=== PATIENT | female | born 1985 | race Caucasian/White ===

== ENCOUNTER 2019-04-02 12:26 | Inpatient (IN) | payer MEDICAID ==
[~2019-04-02] VITALS: Ht 167.6 cm; Wt 95.3 kg
[2019-04-02 17:29] VITALS: BP 139/87; BMI 33.9
[2019-04-02 18:18] LABS: % SATURATION 15 % (15-55); IRON 30 ug/dl (35-150); TOTAL IRON BIND CAPACITY 191 ug/dl (260-445); UNSAT IRON BIND CAPACITY 161 ug/dl (150-375)
[2019-04-02 18:29] VITALS: BP 139/87
--- NOTE | 2019-04-02 19:15 | NUR ---
RECEIVED CARE FROM DAY SHIFT. LYING IN BED ON SIDE. EYES CLOSED, RESP EVEN AND UNLABORED. CALL LIGHT AT SIDE. IV SL TO RIGHT AC.
[2019-04-02 20:00] VITALS: BP 128/83
[2019-04-03] VITALS: BP 128/81
--- NOTE | 2019-04-03 03:49 | NUR ---
I have reviewed this patient and I concur with the Shift Assessment completed by the Licensed Practical Nurse today this shift.
[2019-04-03 05:45] VITALS: BP 125/90
[2019-04-03 06:03] LABS: BASOPHILS 0.1 % (0-2); EOSINOPHILS 1.5 % (0-7); HEMATOCRIT 25.9 % (36.0-48.0); HEMOGLOBIN 9.2 g/dL (12-16); IMMATURE GRANULOCYTES 0.5 % (0-5); LYMPHOCYTES 5.8 % (15-50); MCH 28.9 pg (26.0-34.0); MCHC 35.5 g/dL (31.0-37.0); MCV 81.4 fL (80.0-100.0); MEAN PLATELET VOLUME 11.1 fL (7.4-10.4); MONOCYTES 6.2 % (2-11); NEUTROPHILS 85.9 % (40-80); PLATELET COUNT 330 10x3/uL (130-400); RBC 3.18 10x6/uL (4.00-5.40); RDW 13.3 % (11.5-14.5)
[2019-04-03 06:25] LABS: ALBUMIN 2.1 g/dL (3.4-5.0); ANION GAP 10.9 mmol/L (8-16); BILIRUBIN - TOTAL 1.81 mg/dL (0.2-1.3); CALCIUM 8.4 mg/dL (8.5-10.1); CARBON DIOXIDE 28.2 mmol/L (21.0-32.0); CREATININE - SERUM 1.1 mg/dL (0.6-1.3); POTASSIUM - SERUM 3.1 mmol/L (3.5-5.1); PROTEIN - SERUM 6.9 g/dL (6.4-8.2)
--- NOTE | 2019-04-03 08:00 | NUR ---
ASSESSMENT PER FLOW SHEET. PT IS WITHOUT DISTRESS.CALL LIGHT IN REACH
[2019-04-03 08:44] VITALS: BP 137/87
[2019-04-03 12:59] VITALS: BP 134/90
[2019-04-03 16:25] LABS: APPEARANCE SL CLDY (CLEAR); BILIRUBIN NEGATIVE (NEGATIVE); COLOR YELLOW (YELLOW); GLUCOSE NEGATIVE (NEGATIVE); KETONE NEGATIVE (NEGATIVE); NITRITE NEGATIVE (NEGATIVE); PROTEIN 1+ mg/dL (NEGATIVE); UROBILINOGEN NORMAL (NORMAL)
[2019-04-03 16:27] LABS: BACTERIA FEW /hpf (NONE SEEN); EPITHELIAL CELLS 0-5 /hpf (0-5); RED CELLS - URINE >50 /hpf (0-5); WHITE CELLS - URINE 0-5 /hpf (0-5)
[2019-04-03 18:03] VITALS: BP 127/83
--- NOTE | 2019-04-03 18:12 | NUR ---
PT IS RESTING AND IS WITHOUT DISTRESS AT PRESENT. PT IS WITHOUT CHANGE FROM INITIAL SHIFT ASSESSMENT.CONT PLAN OF CARE
--- NOTE | 2019-04-03 19:15 | NUR ---
RECEIVED CARE FROM DAY NURSE. LYING IN BED ON SIDE TALKING ON PHONE. REPORTS NO NEEDS AT THIS TIME. CALL LIGHT AT SIDE. IV SL TO PATENT RIGHT AC.
[2019-04-03 20:00] VITALS: BP 127/82
--- NOTE | 2019-04-04 03:37 | NUR ---
I have reviewed this patient and I concur with the Shift Assessment completed by the Licensed Practical Nurse today this shift.
[2019-04-04 04:00] VITALS: BP 118/79
[2019-04-04 04:35] LABS: BASOPHILS 0.1 % (0-2); EOSINOPHILS 1.8 % (0-7); HEMATOCRIT 25.8 % (36.0-48.0); HEMOGLOBIN 9.1 g/dL (12-16); IMMATURE GRANULOCYTES 0.5 % (0-5); MCH 28.7 pg (26.0-34.0); MCHC 35.3 g/dL (31.0-37.0); MCV 81.4 fL (80.0-100.0); MONOCYTES 7.6 % (2-11); PLATELET COUNT 382 10x3/uL (130-400); RBC 3.17 10x6/uL (4.00-5.40); RDW 13.6 % (11.5-14.5); WBC 15.1 10x3/uL (4.8-10.8)
[2019-04-04 04:55] LABS: ALBUMIN 2.3 g/dL (3.4-5.0); ANION GAP 11.3 mmol/L (8-16); BILIRUBIN - TOTAL 1.45 mg/dL (0.2-1.3); CALCIUM 8.4 mg/dL (8.5-10.1); CARBON DIOXIDE 27.2 mmol/L (21.0-32.0); POTASSIUM - SERUM 3.5 mmol/L (3.5-5.1); PROTEIN - SERUM 7.3 g/dL (6.4-8.2)
[2019-04-04 08:53] VITALS: BP 139/97
[2019-04-04 13:56] VITALS: BP 129/82
--- NOTE | 2019-04-04 19:14 | NUR ---
PT IS WITHOUT DISTRESS,WITHOUT CHANGE.CONT PLAN OF CARE
[2019-04-04 20:19] VITALS: BP 124/72
--- NOTE | 2019-04-04 22:00 | NUR ---
ASSESSMENT PER FLOWSHEET. IV LEAKING ON RT AC. REMOVED WITH TIP INTACT RESITED TO LT AC #20G X1 ATTEMPT RESUMED IV FLUIDS.
[2019-04-05 04:31] VITALS: BP 133/79
[2019-04-05 06:26] LABS: BASOPHILS 0.1 % (0-2); EOSINOPHILS 1.4 % (0-7); HEMATOCRIT 23.5 % (36.0-48.0); HEMOGLOBIN 8.2 g/dL (12-16); IMMATURE GRANULOCYTES 0.7 % (0-5); LYMPHOCYTES 9.7 % (15-50); MCH 28.3 pg (26.0-34.0); MCHC 34.9 g/dL (31.0-37.0); MONOCYTES 6.9 % (2-11); NEUTROPHILS 81.2 % (40-80); PLATELET COUNT 370 10x3/uL (130-400); RDW 13.9 % (11.5-14.5); WBC 16.2 10x3/uL (4.8-10.8)
[2019-04-05 06:50] LABS: ALKALINE PHOSPHATASE 168 U/L (46-116); BILIRUBIN - TOTAL 1.22 mg/dL (0.2-1.3); CALC OSMOLALITY 268 mosm/kg (275-300); CALCIUM 8.2 mg/dL (8.5-10.1); CARBON DIOXIDE 24.4 mmol/L (21.0-32.0); CHLORIDE - SERUM 103 mmol/L (98-107); CREATININE - SERUM 0.9 mg/dL (0.6-1.3); GLUCOSE 110 mg/dL (74-106); PROTEIN - SERUM 6.8 g/dL (6.4-8.2); SODIUM 135 mmol/L (136-145); UREA NITROGEN 8 mg/dL (7-18); eGFR NON AFRICAN AMERICAN 77 mL/min (90-120)
[2019-04-05 06:52] LABS: ALT (SGPT) 87 U/L (10-68); POTASSIUM - SERUM 4.2 mmol/L (3.5-5.1)
[2019-04-05 08:46] VITALS: BP 142/87
--- NOTE | 2019-04-05 09:09 | NUR ---
REFUSED LOVENOX AT THIS TIME. C/L IN REACH AT BEDSIDE.
--- NOTE | 2019-04-05 12:34 | MORECARE ---
CASE MANAGEMENT DISCHARGE SUMMARY PATIENT: LEAH OTTO UNIT: [id number] ADM DATE: 04/02/19 AGE: 33 : 87 SEX: F ROOM/BED: D.2222 AUTHOR: KARIS,DOC PHYSICIAN: REFERRING PHYSICIAN: RUBIO LINDSEY MD DATE OF SERVICE: 04/05/19 Discharge Plan Patient Name: LEAH OTTO Facility: [facility]:[place] : 1985 Planned Disposition: Home Anticipated Discharge Date: Discharge Date: Expected LOS: Initial Reviewer: [email or web address] Initial Review Date: 04/05/2019 Generated: 04/05/19 1:33 pm Comments DCP- Discharge Planning Updated by [email or web address]: Sandy Coker on 04/05/19 11:[address] Patient Name: LEAH OTTO Admission Status: Elective Accout number: [id number] Admission Date: 04-02-2019 : 1985 Admission Diagnosis:SEPSIS, UNSPECIFIED ORGANISM Attending: RUBIO LINDSEY Current LOS: 3 Anticipated DC Date: Planned Disposition: Home Primary Insurance: MEDICAID [place] Discharge Planning Comments: CM met with patient to complete initial dc planning assessment. CM educated patient on the CM role and verbal consent given by patient to complete assessment. CM verified patient's address, phone number, and emergency contact phone numbers. Patient lives at home with family and reports She is independent in hER care. At discharge patient plans to return home and feels this is a safe discharge. CM discussed availability of home health, rehab services, and medical equipment. Patient denied known discharge needs at this time.. . CM will continue to follow and will assist as needed with dc plans/needs. Inspector Soldering: Sandy Coker DCPIA - Discharge Planning Initial Assessment Updated by [email or web address]: Sandy Cokre on 04/05/19 12:31 pm * Is the patient Alert and Oriented? Yes * How many steps to enter\exit or inside your home? * PCP JOSH * Pharmacy [facility] * Preadmission Environment Home with Family * ADLs Independent * Verbal permission to speak to the caregivers and representatives has been obtained from the patient. N/A * Additional services required to return to the preadmission environment? No * Can the patient safely return to the preadmission environment? Yes * Has this patient been hospitalized within the prior 30 days at any hospital? No Patient Name: LEAH OTTO Page [id number] at 1234 All edits/amendments must be made on the electronic document DICTATION DATE: 04/05/19 1233 POLYSILICON PREPARATION WORKER: BRAEDEN 04/05/19 1233 RPT#: [id number] DC DATE: STATUS: ADM IN [facility] [address] [place] [address] END OF REPORT
[2019-04-05 13:23] VITALS: BP 126/83
[2019-04-05 13:41] VITALS: BMI 33.9
[2019-04-05 16:55] VITALS: BP 127/85
--- NOTE | 2019-04-05 20:00 | NUR ---
ASSESSMENT PER FLOWSHEET. IV PATENT LEFT AC OF NS AT 125CC'S/HR. SITE CLEAR. FAMILY MEMBERS AT BEDSIDE. SR UP X2 CALL LIGHT WITHIN REACH.
[2019-04-05 20:19] VITALS: BP 125/81
--- NOTE | 2019-04-05 21:00 | NUR ---
MEDS GIVEN PER MAR. INSTRUCTED PATIENT WILL NEED UA SPECIMEN NEXT VOID.
--- NOTE | 2019-04-05 22:00 | NUR ---
MEDS PER MAR.
[2019-04-05 23:42] LABS: HCG URINE NEGATIVE (NEGATIVE)
--- NOTE | 2019-04-06 | NUR ---
VIDED UA SPECIMEN OBTAINED AND SENT TO THE LAB
[2019-04-06 00:58] VITALS: BP 124/78
--- NOTE | 2019-04-06 03:51 | NUR ---
EYES CLOSED RESPIRATIONS WITH EASE AND UNLABORED.
[2019-04-06 04:54] VITALS: BP 118/76
[2019-04-06 06:30] LABS: BASOPHILS 0.1 % (0-2); EOSINOPHILS 1.5 % (0-7); HEMATOCRIT 23.4 % (36.0-48.0); HEMOGLOBIN 8.2 g/dL (12-16); IMMATURE GRANULOCYTES 0.6 % (0-5); LYMPHOCYTES 7.5 % (15-50); MCH 28.6 pg (26.0-34.0); MCV 81.5 fL (80.0-100.0); MEAN PLATELET VOLUME 10.5 fL (7.4-10.4); MONOCYTES 7.7 % (2-11); NEUTROPHILS 82.6 % (40-80); PLATELET COUNT 383 10x3/uL (130-400); RBC 2.87 10x6/uL (4.00-5.40); RDW 14.1 % (11.5-14.5); WBC 15.4 10x3/uL (4.8-10.8)
[2019-04-06 06:57] LABS: ALBUMIN 2.1 g/dL (3.4-5.0); ALKALINE PHOSPHATASE 186 U/L (46-116); ALT (SGPT) 123 U/L (10-68); CALC OSMOLALITY 273 mosm/kg (275-300); CALCIUM 8.5 mg/dL (8.5-10.1); CARBON DIOXIDE 23.1 mmol/L (21.0-32.0); CHLORIDE - SERUM 104 mmol/L (98-107); CREATININE - SERUM 0.9 mg/dL (0.6-1.3); GLUCOSE 108 mg/dL (74-106); POTASSIUM - SERUM 4.5 mmol/L (3.5-5.1); SODIUM 137 mmol/L (136-145); UREA NITROGEN 9 mg/dL (7-18); eGFR NON AFRICAN AMERICAN 77 mL/min (90-120)
[2019-04-06 12:49] VITALS: BP 124/74
[2019-04-06 13:02] VITALS: Ht 167.6 cm; Wt 95.3 kg
[2019-04-06 13:09] LABS: CRYPTOCOCCUS AG - SERUM Negative (Negative)
[2019-04-06 13:09] LABS: EHRLICHIA CHAFF IGG Negative (Neg:<1:64); EHRLICHIA CHAFF IGM Negative (Neg:<1:20); HGE IGG TITER Negative (Neg:<1:64); HGE IGM TITER Negative (Neg:<1:20)
--- NOTE | 2019-04-06 15:08 | NUR ---
NUTRITION F/U REG DIET. PT DID TOLERATE 50% INTAKE RECENT MEALS. WILL CONTINUE TO HONOR FOOD PREFERENCES, MONITOR PO INTAKE. RD FOLLOWING
[2019-04-06 15:58] VITALS: BP 135/87
--- NOTE | 2019-04-06 20:00 | NUR ---
ASSESSMENT PER FLOWSHEET. IV PATENT LEFT AC OF NS AT 50CC'S/HR SR UP X2 CALL LIGHT WITHIN YUDI.
[2019-04-06 20:49] VITALS: BP 130/81
--- NOTE | 2019-04-06 21:00 | NUR ---
MEDS GIVEN PER MAR.
--- NOTE | 2019-04-07 | NUR ---
EYES CLOSED RESPIRATIONS WITH EASE AND UNLABORED. DENIES NEEDS.
[2019-04-07 00:39] VITALS: BP 121/82
[2019-04-07 03:07] LABS: RMSF IGM 0.41 index (0.00-0.89)
[2019-04-07 04:54] VITALS: BP 143/96
[2019-04-07 07:23] LABS: BASOPHILS 0.1 % (0-2); EOSINOPHILS 1.6 % (0-7); IMMATURE GRANULOCYTES 0.4 % (0-5); LYMPHOCYTES 9.3 % (15-50); MCH 28.5 pg (26.0-34.0); MCHC 34.6 g/dL (31.0-37.0); MCV 82.3 fL (80.0-100.0); MONOCYTES 5.7 % (2-11); NEUTROPHILS 82.9 % (40-80); RBC 3.16 10x6/uL (4.00-5.40); RDW 14.1 % (11.5-14.5); WBC 13.5 10x3/uL (4.8-10.8)
[2019-04-07 07:39] LABS: PLATELET COUNT 461 10x3/uL (130-400)
[2019-04-07 07:49] LABS: ALBUMIN 2.4 g/dL (3.4-5.0); ANION GAP 13.3 mmol/L (8-16); BILIRUBIN - TOTAL 0.83 mg/dL (0.2-1.3); CALCIUM 8.8 mg/dL (8.5-10.1); CREATININE - SERUM 1.1 mg/dL (0.6-1.3); POTASSIUM - SERUM 4.3 mmol/L (3.5-5.1); PROTEIN - SERUM 7.8 g/dL (6.4-8.2)
[2019-04-07 08:22] VITALS: BP 119/84
[2019-04-07 10:11] LABS: F. TULARENSIS - IGG Negative (Negative); F. TULARENSIS - IGM Negative (Negative)
--- NOTE | 2019-04-07 11:34 | NUR ---
PT REFUSED DOXYCYLINE IV STATTING " THIS MEDS BURN AND HAD ME UP ALL NIGHT AND I AM NOT TAKING IT." CALL WAS PLACE TO DR. LINDSEY TO SEE IF HE WANTS TO CHANGE TO PO INSTEAD.
--- NOTE | 2019-04-07 11:50 | NUR ---
REC'D NEW ORDERS FOR DOXYCYCLINE 100 PO EVERY 12 HOURS AT THIS TIME. PT MADE AWARE OF NEW ORDERS. C/L IN REACH AT BEDSIDE.
[2019-04-07 13:15] VITALS: BP 157/89
--- NOTE | 2019-04-07 13:27 | NUR ---
I have reviewed this patient and I concur with the Shift Assessment completed by the Licensed Practical Nurse today this shift.
[2019-04-07 16:54] VITALS: BP 119/77
--- NOTE | 2019-04-07 19:00 | NUR ---
REPORT RECEIVED AND CARE OF PT ASSUMED. PT LYING IN LOW REYNOLDS'S POSITION WITH EYES CLOSED AND EASY RESPIRATIONS. NO IV AT THIS TIME. WILL MONITOR FOR NEEDS.
--- NOTE | 2019-04-07 21:12 | NUR ---
HS MEDICATIONS GIVEN. UNABLE TO GIVE IV MEDS PT WITHOUT IV AND REFUSES TO HAVE RE-SITED.
[2019-04-07 21:48] VITALS: BP 110/71
--- NOTE | 2019-04-07 22:30 | NUR ---
PT VISITING WITH FAMILY MEMBERS AT THIS TIME.
[2019-04-08] VITALS: BP 115/68
[2019-04-08 04:58] LABS: BASOPHILS 0.2 % (0-2); EOSINOPHILS 1.6 % (0-7); HEMOGLOBIN 9.1 g/dL (12-16); IMMATURE GRANULOCYTES 0.7 % (0-5); LYMPHOCYTES 12.8 % (15-50); MCH 28.9 pg (26.0-34.0); MCV 82.5 fL (80.0-100.0); MEAN PLATELET VOLUME 10.6 fL (7.4-10.4); MONOCYTES 5.6 % (2-11); NEUTROPHILS 79.1 % (40-80); PLATELET COUNT 548 10x3/uL (130-400); RBC 3.15 10x6/uL (4.00-5.40); RDW 14.4 % (11.5-14.5); WBC 13.1 10x3/uL (4.8-10.8)
[2019-04-08 05:26] LABS: ALBUMIN 2.5 g/dL (3.4-5.0); ANION GAP 15.8 mmol/L (8-16); BILIRUBIN - TOTAL 0.77 mg/dL (0.2-1.3); CALCIUM 9.1 mg/dL (8.5-10.1); CARBON DIOXIDE 23.3 mmol/L (21.0-32.0); PROTEIN - SERUM 7.9 g/dL (6.4-8.2)
[2019-04-08 05:28] LABS: POTASSIUM - SERUM 5.1 mmol/L (3.5-5.1)
[2019-04-08] MEDS ORDERED: ONDANSETRON ODT8 MG PO (06:01)
[2019-04-08 08:25] VITALS: BP 123/77
--- NOTE | 2019-04-08 10:00 | NUR ---
SPOKE WITH PATIENT ABOUT RESTARTING IV. TRIED TO EXPLAIN SHE IS GETTING IV ANTIBIOTICS AND IV IS NEEDED AT THIS TIME. PATIENT STATED SHE STILL REFUSES IV. FAMILY AT BEDSIDE. CALL LIGHT WITHIN REACH.
[2019-04-08 11:59] VITALS: BP 121/77
[2019-04-08] MEDS ORDERED: LOPRESSOR25 MG PO (13:13)
[2019-04-08] MEDS ORDERED: NORVASC10 MG PO (13:13)
[2019-04-08] MEDS ORDERED: VIBRAMYCIN 100100 MG PO (13:13)
[2019-04-08] MEDS ORDERED: TESSALON PERLE100 MG PO (13:14)
[2019-04-08] MEDS ORDERED: MUCINEX600 MG PO (13:14)
[2019-04-08] MEDS ORDERED: FLORAJEN3 CAPS460 MG PO (13:14)
--- NOTE | 2019-04-08 15:06 | MORECARE ---
CASE MANAGEMENT DISCHARGE SUMMARY PATIENT: LEAH OTTO UNIT: [id number] ADM DATE: 04/02/19 AGE: 33 : 87 SEX: F ROOM/BED: D.2222 AUTHOR: KARIS,DOC PHYSICIAN: REFERRING PHYSICIAN: RUBIO LINDSEY MD DATE OF SERVICE: 04/08/19 Discharge Plan Patient Name: LEAH OTTO Facility: [facility]:[place] : 1985 Planned Disposition: Home Anticipated Discharge Date: Discharge Date: Expected LOS: Initial Reviewer: [email or web address] Initial Review Date: 04/05/2019 Generated: 04/08/19 4:06 pm Comments DCP- Discharge Planning Updated by [email or web address]: Pat Lake on 04/08/19 2:[address] Patient Name: LEAH OTTO Encounter No: [id number] : 1985 Primary Insurance: MEDICAID [place] Anticipated DC Date: Planned Disposition: Home External Planned Provider: : DCP follow-up note: Patient and family in agreement with discharge plan. No changes to plan. Case management will follow and assist as needed. Pat Lake DCP- Discharge Planning Updated by [email or web address]: Sandy Coker on 04/05/19 11:[address] Patient Name: LEAH OTTO Admission Status: Elective Accout number: [id number] Admission Date: 04-02-2019 : 1985 Admission Diagnosis:SEPSIS, UNSPECIFIED ORGANISM Attending: RUBIO LINDSEY Current LOS: 3 Anticipated DC Date: Planned Disposition: Home Primary Insurance: MEDICAID [place] Discharge Planning Comments: CM met with patient to complete initial dc planning assessment. CM educated patient on the CM role and verbal consent given by patient to complete assessment. CM verified patient's address, phone number, and emergency contact phone numbers. Patient lives at home with family and reports She is independent in hER care. At discharge patient plans to return home and feels this is a safe discharge. CM discussed availability of home health, rehab services, and medical equipment. Patient denied known discharge needs at this time.. . CM will continue to follow and will assist as needed with dc plans/needs. Funeral Home Location Manager: Sandy Coker DCPIA - Discharge Planning Initial Assessment Updated by [email or web address]: Sandy Coker on 04/05/19 12:31 pm * Is the patient Alert and Oriented? Yes * How many steps to enter\exit or inside your home? * PCP JOSH * Pharm[facility] * Preadmission Environment Home with Family * ADLs Independent * Verbal permission to speak to the caregivers and representatives has been obtained from the patient. N/A * Additional services required to return to the preadmission environment? No * Can the patient safely return to the preadmission environment? Yes * Has this patient been hospitalized within the prior 30 days at any hospital? No Last DP export: 04/05/19 11:34 a Patient Name: LEAH OTTO Page [id number] at 1506 All edits/amendments must be made on the electronic document DICTATION DATE: 04/08/195 TESTING COORDINATOR: BRAEDEN 04/08/19 1505 RPT#: [id number] DC DATE: STATUS: ADM IN [facility] [address] [place] [address] END OF REPORT
[2019-04-08 16:32] VITALS: BP 117/71
--- NOTE | 2019-04-08 19:15 | NUR ---
RECEIVED CARE FROM DAY NURSE. LYING IN BED WITH COMPANY AT SIDE. REPORTS NO NEEDS AT THIS TIME. NO DISTRESS NOTED. NO IV. CALL LIGHT AT SIDE.
--- NOTE | 2019-04-08 19:22 | NUR ---
PATIENT WAITING FOR US RESULTS TO BE DISCHARGED. NO COMPLAINTS OR SIGNS OF DISTRESS. CALL LIGHT WITHIN REACH. FAMILY AT BEDSIDE.
[2019-04-08 20:43] VITALS: BP 136/82
--- NOTE | 2019-04-08 21:05 | NUR ---
PER CALL SERVICE KEVIN FERNANDEZ APN INSTANT POTATO PROCESSING SUPERVISOR. REQUEST CALL SERVICE TO PAGE HER ABOUT PT DISCHARGE. PER REPORT NO DVT TO LEFT ARM.
--- NOTE | 2019-04-09 01:11 | NUR ---
NO RETURN CALL FROM MOLD MECHANIC. DC'D HOME VIA W/C. DR PAGE STATED PT COULD DC IF U/S OF LEFT ARM WAS CLEAR.
--- NOTE | 2019-04-09 16:46 | NUR ---
PT'S MOTHER CALLED AND STATES RX'S WERE SUPPOSED TO BE TRANSFERRED TO [facility] IN [place]. CALL THAT LILIANA GUNTER [phone] AND SPOKE WITH KATHARINE. RX'S FOR NORVASC, TESSALON PERLES, DOXYCYCLINE, MUCINEX, FLORAJEN AND LOPRESSOR TRANSFERRED REQUSTED.
--- NOTE | 2019-04-11 07:33 | MORECARE ---
CASE MANAGEMENT DISCHARGE SUMMARY PATIENT: LEAH OTTO UNIT: [id number] ADM DATE: 04/02/19 AGE: 33 : 87 SEX: F ROOM/BED: D.2222 AUTHOR: KARISDOC PHYSICIAN: REFERRING PHYSICIAN: RUBIO LINDSEY MD DATE OF SERVICE: 04/11/19 Discharge Plan Patient Name: LEAH OTTO Facility: [facility]:[place] : 1985 Planned Disposition: Home Anticipated Discharge Date: Discharge Date: 04/09/2019 Expected LOS: Initial Reviewer: [email or web address] Initial Review Date: 04/05/2019 Generated: 04/11/19 8:33 am Comments DCP- Discharge Planning Updated by [email or web address]: Pat Lake on 04/08/19 2:[address] Patient Name: LEAH OTTO Encounter No: [id number] : 1985 Primary Insurance: MEDICAID [place] Anticipated DC Date: Planned Disposition: Home External Planned Provider: : DCP follow-up note: Patient and family in agreement with discharge plan. No changes to plan. Case management will follow and assist as needed. Pat Lake DCP- Discharge Planning Updated by [email or web address]: Sandy Coker on 04/05/19 11:[address] Patient Name: LEAH OTTO Admission Status: Elective Accout number: [id number] Admission Date: 04-02-2019 : 1985 Admission Diagnosis:SEPSIS, UNSPECIFIED ORGANISM Attending: RUBIO LINDSEY Current LOS: 3 Anticipated DC Date: Planned Disposition: Home Primary Insurance: MEDICAID [place] Discharge Planning Comments: CM met with patient to complete initial dc planning assessment. CM educated patient on the CM role and verbal consent given by patient to complete assessment. CM verified patient's address, phone number, and emergency contact phone numbers. Patient lives at home with family and reports She is independent in hER care. At discharge patient plans to return home and feels this is a safe discharge. CM discussed availability of home health, rehab services, and medical equipment. Patient denied known discharge needs at this time.. . CM will continue to follow and will assist as needed with dc plans/needs. Testing And Regulating Technician: Sandy Coker DCPIA - Discharge Planning Initial Assessment Updated by [email or web address]: Sandy Coker on 04/05/19 12:31 pm * Is the patient Alert and Oriented? Yes * How many steps to enter\exit or inside your home? * PCP JOSH * Pharm[facility] * Preadmission Environment Home with Family * ADLs Independent * Verbal permission to speak to the caregivers and representatives has been obtained from the patient. N/A * Additional services required to return to the preadmission environment? No * Can the patient safely return to the preadmission environment? Yes * Has this patient been hospitalized within the prior 30 days at any hospital? No Last DP export: 04/08/19 2:06 p Patient Name: LEAH OTTO Page 00351 at 0733 All edits/amendments must be made on the electronic document DICTATION DATE: 04/11/19732 STAFF COUNSELOR: BRAEDEN 04/11/1932 RPT#: [id number] DC DATE:04/09/19 STATUS: DIS IN [facility] [address] [place] [address] END OF REPORT
== END 2019-04-09 01:12 | disposition home or self-care (01) | DRG 871 ==
LOC: D.MS 12:26 → D.SDCHOLD 04-04 11:32 → D.MS 04-04 11:33
PROVIDERS: Emergency Medicine; ADMIT Internal Medicine Nephrology; ATTEND Internal Medicine Nephrology
DX: A41.9 Sepsis, unspecified organism (principal); I50.21 Acute systolic (congestive) heart failure; N39.0 Urinary tract infection, site not specified; D64.9 Anemia, unspecified; E66.01 Morbid (severe) obesity due to excess calories; E87.6 Hypokalemia; R59.1 Generalized enlarged lymph nodes